=== PATIENT | female | born 1955 | race African-American/Black ===

== ENCOUNTER → 2021-02-04 | Outpatient (CLI) | payer OTHER ==
[~2021-02-04] MED LIST: ASPIR 8181 MG PO; BACLOFEN10 MG PO; CALCIUM MAGNES1 EACH PO; CILOSTAZOL100 MG PO; COZAAR 50MG TAB50 MG PO; ENALAPRIL MALEA20 MG PO; FOLIC ACID0.4 MG PO; FUROSEMIDE20 MG PO; GLUCOPHAGE XR500 M1 PO; HYDROCHLOROTHIA25 MG PO; IMDUR ER TAB 3030 MG PO; K-DUR TAB 20 M20 MEQ PO; LEVAQUIN500 MG PO; LEXAPRO20 MG PO; LIPITOR TAB 2020 MG PO; MEGACE SUSP40 MG/M1 PO; MELATONIN10 M2 PO; METOPROLOL TART50 MG PO; NAPROSYN500 MG PO; NEURONTIN 400400 MG PO; NITROSTAT 0.40.4 MG SL; NORCO 7.5-3251 EACH PO; NORVASC10 MG PO; OXYCODONE HCL10 MG PO; PLAVIX75 MG PO; PROCARDIA XL90 MG PO; ROPINIROLE HCL1 MG PO; VITAMIN B COMP1 EACH PO
== END ==
LOC: HEART 5 01-29 09:15
DX: R07.89 Other chest pain (principal); R94.39 Abnormal result of other cardiovascular function study
CPT/HCPCS: 78452; A9502; J2785

== ENCOUNTER → 2021-02-07 | Outpatient (CLI) | payer OTHER | LOC: EXRD 10:37 | DX: I25.119 Atherosclerotic heart disease of native coronary artery with unspecified angina pectoris (principal); R00.2 Palpitations; J98.11 Atelectasis | CPT/HCPCS: 71046 ==

== ENCOUNTER → 2021-02-22 | Outpatient (CLI) | payer OTHER | LOC: HEART 5 08:42 | DX: R06.02 Shortness of breath (principal); R94.2 Abnormal results of pulmonary function studies | CPT/HCPCS: 94060; 94729 ==

== ENCOUNTER 2021-12-28 10:49 | Emergency (ER) | payer OTHER ==
[2021-12-28 11:53] LABS: HEMOGLOBIN 12.4 gm/dl (12.3-15.3); RED BLOOD COUNT 4.28 M/UL (4.00-5.10); WHITE BLOOD COUNT 5.7 K/UL (4.5-11.0)
[2021-12-28] MEDS ORDERED: PREDNISONE20 MG PO (15:09)
[2021-12-28] MEDS ORDERED: PROAIR HFA8.5 GM INH (15:09)
== END 2021-12-28 15:15 | disposition home or self-care (01) ==
LOC: ER1 10:49
PROVIDERS: Physician Assistant
DX: J45.901 Unspecified asthma with (acute) exacerbation (principal); R20.2 Paresthesia of skin; H53.2 Diplopia; D32.0 Benign neoplasm of cerebral meninges; E11.9 Type 2 diabetes mellitus without complications; E78.5 Hyperlipidemia, unspecified; I10 Essential (primary) hypertension; Z86.73 Personal history of transient ischemic attack (TIA), and cerebral infarction without residual deficits; Z88.1 Allergy status to other antibiotic agents; Z88.0 Allergy status to penicillin; Z88.6 Allergy status to analgesic agent; Z95.0 Presence of cardiac pacemaker; Z95.1 Presence of aortocoronary bypass graft; Z95.5 Presence of coronary angioplasty implant and graft; Z79.01 Long term (current) use of anticoagulants; Z88.5 Allergy status to narcotic agent
CPT/HCPCS: 36600; 70450; 71045; 80053; 82550; 82553; 82803; 83880; 84484; 85025; 93005; 94664; 94760; 99285

== ENCOUNTER → 2022-02-04 | Outpatient (CLI) | payer OTHER ==
[~2022-02-04] MED LIST changes: +PREDNISONE20 MG PO; +PROAIR HFA8.5 GM INH
== END ==
LOC: MRI 01-31 11:00
DX: D32.9 Benign neoplasm of meninges, unspecified (principal); Z86.73 Personal history of transient ischemic attack (TIA), and cerebral infarction without residual deficits
CPT/HCPCS: 70553; A9577

== ENCOUNTER 2022-05-06 16:23 | Observation (INO) | payer OTHER ==
[~2022-05-06] VITALS: Ht 165.1 cm; Wt 73.5 kg
[~2022-05-06 16:23] MED LIST changes: +LEXAPRO10 MG PO; -LEXAPRO20 MG PO; +LOPRESSOR 25 MG25 MG PO; -METOPROLOL TART50 MG PO
[2022-05-06] MEDS ORDERED: ROPINIROLE HCL2 MG PO (18:13)
[2022-05-06] MEDS ORDERED: METRONIDAZOLE500 MG PO (18:14)
[2022-05-06] MEDS ORDERED: ELIQUIS5 MG PO (18:15)
[2022-05-06] MEDS ORDERED: LASIX20 MG PO (18:17)
[2022-05-06] MEDS ORDERED: BACLOFEN20 MG PO (18:23)
[2022-05-06] MEDS ORDERED: VITAMIN B-122000 MC1 PO (18:24)
[2022-05-06] MEDS ORDERED: CALCIUM500 MG PO (18:24)
[2022-05-06] MEDS ORDERED: VITAMIN D250 MCG PO (18:25)
[2022-05-06] MEDS ORDERED: BIOTIN10 MG PO (18:25)
[2022-05-06] MEDS ORDERED: ZINC30 MG PO (18:26)
[2022-05-06 19:08] LABS: HEMOGLOBIN 13.1 gm/dl (12.3-15.3); RED BLOOD COUNT 4.54 M/UL (4.00-5.10); WHITE BLOOD COUNT 5.7 K/UL (4.5-11.0)
[2022-05-06 19:27] LABS: BUN/CREATININE RATIO 26 (0-10)
[2022-05-07 01:48] LABS: HEMOGLOBIN 12.5 gm/dl (12.3-15.3); RED BLOOD COUNT 4.34 M/UL (4.00-5.10); WHITE BLOOD COUNT 5.5 K/UL (4.5-11.0)
[2022-05-08 03:05] LABS: HEMOGLOBIN 11.9 gm/dl (12.3-15.3); RED BLOOD COUNT 4.14 M/UL (4.00-5.10)
[2022-05-08 03:06] LABS: WHITE BLOOD COUNT 8.5 K/UL (4.5-11.0)
== END 2022-05-08 13:00 | disposition home or self-care (01) ==
LOC: PROG CARE 17:35
PROVIDERS: Internal Medicine; ADMIT Internal Medicine
DX: I25.110 Atherosclerotic heart disease of native coronary artery with unstable angina pectoris (principal); E11.9 Type 2 diabetes mellitus without complications; I10 Essential (primary) hypertension; E78.5 Hyperlipidemia, unspecified; I49.5 Sick sinus syndrome; I73.9 Peripheral vascular disease, unspecified; R55 Syncope and collapse; G47.33 Obstructive sleep apnea (adult) (pediatric); G89.4 Chronic pain syndrome; F41.9 Anxiety disorder, unspecified; F11.20 Opioid dependence, uncomplicated; F31.9 Bipolar disorder, unspecified; E66.9 Obesity, unspecified; Z72.0 Tobacco use; Z86.73 Personal history of transient ischemic attack (TIA), and cerebral infarction without residual deficits; Z98.61 Coronary angioplasty status; Z95.0 Presence of cardiac pacemaker; Z95.1 Presence of aortocoronary bypass graft; Z79.01 Long term (current) use of anticoagulants; Z88.6 Allergy status to analgesic agent; Z88.1 Allergy status to other antibiotic agents; Z88.0 Allergy status to penicillin; Z88.8 Allergy status to other drugs, medicaments and biological substances; Z90.710 Acquired absence of both cervix and uterus; Z90.49 Acquired absence of other specified parts of digestive tract; Z88.5 Allergy status to narcotic agent; Z79.82 Long term (current) use of aspirin
CPT/HCPCS: ECHO; 36415; 71045; 80048; 80053; 81001; 82550; 82553; 82607; 82962; 83036; 83540; 83550; 83605; 83735; 83880; 84100; 84439; 84443; 84484; 85025; 85027; 85652; 86140; 87040; 93005; 93306; 93571; 93880; 94664; 94760; 99152; 99153; C1769; C1887; C1894; G0378; G0379; J0153; J1644; J2250; J2270; J3010; Q9965

== ENCOUNTER → 2022-05-22 | Outpatient (CLI) | payer OTHER ==
[~2022-05-22] MED LIST changes: +BACLOFEN20 MG PO; +BIOTIN10 MG PO; +CALCIUM500 MG PO; +ELIQUIS5 MG PO; +LASIX20 MG PO; +METRONIDAZOLE500 MG PO; +ROPINIROLE HCL2 MG PO; +VITAMIN B-122000 MC1 PO; +VITAMIN D250 MCG PO; +ZINC30 MG PO
== END ==
LOC: HEART 5 14:33
DX: J44.9 Chronic obstructive pulmonary disease, unspecified (principal)
CPT/HCPCS: 94060; 94729